=== PATIENT | male | born 1945 | race Caucasian/White ===

== ENCOUNTER → 2017-02-14 | Outpatient (CLI) | payer MEDICARE ==
[~2017-02-14] MED LIST: ADULT LOW DOSE81 MG PO; ASPIR 8181 MG PO; ASPIRIN EC81 M1 PO; AVODART0.5 MG PO; CELEBREX 200 M200 MG PO; CIPRO500 MG PO; FLOMAX PO; HYDROCHLOROTH12.5 MG PO; HYDROCODON-ACE1 EAC1 PO; HYDROCODON-ACE1 EAC5 PO; HYDROCODON-ACE1 EAC8 PO; MOBIC15 MG PO; NEURONTIN 300M300 M2 PO; OXYCODON-ACETA1 EAC1 PO; OXYCODONE-ACET1 EAC2 PO; PERCOCET 10-321 EAC1 PO; PERCOCET 10-321 EACH PO; RESTORIL15 MG PO
--- NOTE | 2017-03-01 09:02 | PAINCON ---
[address] [address] PAIN MANAGEMENT CONSULTATION Name: PETE BANGURA [id number] Admission: 02/14/17 Attend Phys: Luis Armando Milan DO Discharge: Date of : 45 Report #: [id number] THIS REPORT FOR: //name// CC: Amos Milan DATE OF SERVICE: 02/14/2017 CHIEF COMPLAINT: Low back pain, left lower extremity pain and paresthesias. HISTORY OF PRESENT ILLNESS: As you know, the patient is a very pleasant 72-year-old male who returns today in followup visit for continuation of medication therapy. The patient is placing current pain score 3/10. States he is experiencing mainly pain in low back, left lower extremity. He has intermittent flares throughout the day, mainly with activities when medications are not beneficial. He states that walking, sitting, standing, climbing stairs, lifting and bending exacerbate symptoms, medications appear to improve pain. He returns today in followup visit requesting no changes in medical therapy despite the fact that he is experiencing increasing flares of pain. Overall, states doing very well. We have discussed the possibility of a long-acting medication in the patient's case, but yet the patient does not wish to try this therapy. He returns today requesting 3 months' worth of medication for ongoing pain issues. ALLERGIES: No known drug allergies. CURRENT MEDICATIONS: Aspirin 81 mg per day, Avodart 0.5 mg once a day, Neurontin 900 mg 3 times a day, hydrochlorothiazide 12.5 mg once a day, Percocet 10/325 q. 5 hours p.r.n. for pain, Restoril 15 mg p.o. at bedtime. SOCIAL HISTORY: The patient denies tobacco, alcohol, IV or illicit drug use. 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 He is unaccompanied today. IMAGING: No new imaging available. PHYSICAL EXAMINATION: VITAL SIGNS: Blood pressure 127/69, pulse 68, respiratory rate 16, unlabored. The patient is 94% on room air, current temperature 97.7 degrees Fahrenheit, height 5 feet 9 inches tall, weight 163 pounds, BMI calculated 24. GENERAL: Well-developed, well-nourished, well-hydrated kyphotic and severely scoliotic 72-year-old male. He appears his stated age. He is placing current pain score 3/10. HEENT: Normocephalic, atraumatic. Pupils equal, round, reactive to light. EXTREMITIES: Show no clubbing, no cyanosis, no edema. MUSCULOSKELETAL: Lower extremity strength appears equal and symmetrical 5/5, [place] [address] PAIN MANAGEMENT CONSULTATION Name: PETE BANGURA Room: [facility]#: [id number] Admission: 02/14/17 Attend Phys: Luis Armando Milan DO Discharge: Date of : 45 Report #: [id number] muscle bulk and tone equal and symmetrical. Seated straight leg raising is negative. Supine straight leg raising is positive on the left. Alber's test negative. Active and passive range of motion of the shoulders met with increasing pain, left greater than right. He is displaying antalgic gait favoring left lower extremity over right. He is using a cane for ambulation. ASSESSMENT: 1. Symptomatic lumbar radiculopathy. 2. Spinal stenosis of lumbar spine. 3. Displacement of lumbar intervertebral disk with radiculopathy. 4. Lumbosacral spondylosis with radiculopathy. 5. Kyphosis. 6. Scoliosis. 7. Bilateral shoulder pain. 8. Chronic intractable pain. PLAN: 1. The patient has returned today in followup visit for medication management. The patient indicates increasing pain with activities, but at this point does not wish to make any adjustments in his therapy. States overall his pain medications are working well. He is requesting refills for the next 3 months. He indicates no side effects to medication and he has requested no early refills on his scheduled medications. 2. The patient was provided prescription of Percocet 10/325 one tab every 4-1/2 hours p.r.n. for pain., #150 releases of today, 4 weeks from today, 8 weeks from today. We did attempt to have this patient initiated on a long-term medication, but due to lack of coverage of the long-acting opioids, we were unable to place the patient on therapy. He remains on the immediate release formulation secondary to the lack of coverage for more appropriate long-acting medications. 3. The patient was provided prescription of Neurontin 300 mg dose 3 tabs p.o. t.i.d. #270, two refills, 3 months' worth of medication. 4. We will see the patient back in followup visit in 3 months for medication management. <ELECTRONICALLY SIGNED> By: Luis Armando Milan DO 03/01/17 0902 [id number] Armando Milan DO /nt
== END ==
LOC: M.PC 00:54
DX: M48.061 Spinal stenosis, lumbar region without neurogenic claudication (principal); M51.16 Intervertebral disc disorders with radiculopathy, lumbar region; M47.27 Other spondylosis with radiculopathy, lumbosacral region; M41.86 Other forms of scoliosis, lumbar region; M25.511 Pain in right shoulder; M25.512 Pain in left shoulder; G89.29 Other chronic pain

== ENCOUNTER → 2017-05-10 | Outpatient (CLI) | payer MEDICARE ==
--- NOTE | 2017-05-18 15:40 | PAINCON ---
[address] [address] PAIN MANAGEMENT CONSULTATION Name: SVETAPETE E Room: [facility] Tori#: [id number] Admission: 05/10/17 Attend Phys: Amara Turk MD Discharge: Date of : 45 Report #: [id number] THIS REPORT FOR: //name// CC: Amos Turk DATE OF SERVICE: 05/10/2017 CHIEF COMPLAINT: Low back, bilateral hip pain, left greater than right. FOLLOWUP HISTORY: The patient is a 72-year-old gentleman who has been followed in the pain clinic by Dr. Luis Armando Milan. This is my first visit with the patient. As you recall, he is a gentleman who has continued to have low back pain, which he rates as a score of 4/10. As you recall, he has had some pain for years. Pain in his hips continues to worsen. He feels that his pain medications of Percocet and gabapentin are helpful and help the pain remains tolerable. The pain interacts with his ability to engage in activities of daily living, which include walking, sitting, standing, climbing stairs, lifting and bending. Rates his pain as 5/10 at this juncture. He also has some pain in his neck from cervical spondylosis. He continues to have muscle spasms. He has returned today for renewal of his medications. Denies that these medications are causing any problems with mentation. He is not having significant problems with his bowel or bladder function at this juncture. ALLERGIES: No known drug allergies. MEDICATIONS: Review of current medications aspirin 81 mg chewable daily, Avodart 0.5 mg daily, gabapentin 300 mg 1 p.o. t.i.d., hydrochlorothiazide 12.5 mg daily, oxycodone 10/325 one p.o. q. 4-6h p.r.n., and Restoril 15 mg at bedtime. PAST MEDICAL HISTORY: 1. Symptomatic lumbar radiculopathy. 2. Lumbar intervertebral disk without myelopathy. 3. Lumbosacral spondylosis without myelopathy. 4. Spinal stenosis of the lumbar spine. 5. Severe kyphosis. 6. Chronic intractable pain. 7. History of kidney disease. 8. Muscular dystrophy. 9. First stage leukemia. PAST SURGICAL HISTORY: Tonsillectomy, foot surgery in 2013, in the little toes, status post transurethral resection of the prostate in 12/2014[place] [address] PAIN MANAGEMENT CONSULTATION Name: PETE BANGURA Room: [facility]#: [id number] Admission: 05/10/17 Attend Phys: Amara Turk MD Discharge: Date of : 45 Report #: [id number] REVIEW OF SYSTEMS: Muscle weakness, bilateral hip pain, poor balance. PAIN CLINIC ASSESSMENT: 1. The patient states he is not being treated for osteoarthritis or rheumatoid arthritis. 2. Height 5 feet 10 inches, weight 170 pounds, BMI is 24. 3. Vital signs: Blood pressure 151/73, heart rate 63, respiratory rate 16, room air saturation 95%, temperature 97.9. 4. Pain intensity 3-4. The patient sometimes gets up at 4:00 a.m. to take his pain medication because of the pain and discomfort as pain in his low back and legs as well as down his hip. 5. Fall risk. The patient has fallen a couple of times. He states that he tripped, lost his balance while going downstairs. 6. Blood thinner. The patient is not on a blood thinner. 7. Hypertension. The patient is being treated for hypertension. 8. Opioid therapy greater than 6 weeks. The patient is on an opioid therapy. 9. Risk assessment tool. 10. Functional assessment tool. 11. Recreational drug use. Denies use of recreational drugs. 12. Tobacco. Denies use of tobacco. 13. Alcohol. The patient sometimes drinks alcoholic beverage during the weekend. PHYSICAL EXAMINATION: GENERAL: The patient is a 72-year-old gentleman who has so alert and has some physical findings consistent with multiple sclerosis. He appears his stated age. Orientation: The patient is alert and oriented x 3. Patient's affect appears appropriate. Speech is fluent. HEENT: Normocephalic, atraumatic. Extraocular muscles intact. Hearing is within normal limits. Sclerae is nonicteric membranes are moist. NECK: Without adenopathy or bruits. CHEST: Clear. ABDOMEN: Nontender. MUSCULOSKELETAL: The patient stands with some leaning to the left with his well-being supported by his cane. Walks with a quite strenuous effort with use of his cane. EXTREMITIES: No clubbing, cyanosis or edema. Lower extremity shows generally symmetrical 5/5 muscle strength. Walks with somewhat of a shuffling motion. Muscle bulk and tone are about equal and symmetrical. Straight leg raising is negative. Supine straight leg raising, left is positive. ADELE test negative. Notes increased pain with active motion of his shoulders, left greater than right, antalgic gait favoring his left lower extremity. Uses a cane in the left hand for support. IMPRESSION: 1. Symptomatic lumbar radiculopathy. [facility] [address] [place] [address] PAIN MANAGEMENT CONSULTATION Name: PETE BANGURA Room: [facility]#: [id number] Admission: 05/10/17 Attend Phys: Amara Turk MD Discharge: Date of : 45 Report #: [id number] 2. Spinal stenosis of lumbar spine. 3. Displacement of the lumbar intervertebral disk with radiculopathy. 4. Lumbosacral spondylosis with radiculopathy. 5. Kyphosis. 6. Scoliosis. 7. Bilateral shoulder pain. 8. Chronic intractable pain. 9. Cervical facet syndrome. 10. Muscular dystrophy. 11. Chronic lymphocytic leukemia. 12. Enlarged prostate. 13. Hypertension. RECOMMENDATIONS: We discussed treatment options with the patient. He will continue with his followup at [facility]. He will also continue with followup regards with his primary in regards to the chronic lymphocytic leukemia. We will continue with his current medications of gabapentin 300 mg p.o. t.i.d. and oxycodone 10/325 a total of 5 tablets per day. He will call us if he has any problems with his medications. He will follow up in the pain clinic in about 3 months. We would like to thank you for letting us participate in his care. We hope he continues to improve. <ELECTRONICALLY SIGNED> By: Amara Turk MD 05/18/17 1540 [id number]. Flaco Turk MD /PMT
== END ==
LOC: M.PC 03:00
DX: M48.061 Spinal stenosis, lumbar region without neurogenic claudication (principal); M47.27 Other spondylosis with radiculopathy, lumbosacral region; I10 Essential (primary) hypertension; M41.86 Other forms of scoliosis, lumbar region; N40.0 Benign prostatic hyperplasia without lower urinary tract symptoms; G71.0 Muscular dystrophy

== ENCOUNTER → 2017-07-26 | Outpatient (CLI) | payer MEDICARE ==
--- NOTE | 2017-08-04 15:18 | PAINCON ---
[address] [address] PAIN MANAGEMENT CONSULTATION Name: PETE BANGURA Room: [facility] Tori#: [id number] Admission: 07/26/17 Attend Phys: Amara Turk MD Discharge: Date of : 45 Report #: [id number] THIS REPORT FOR: //name// CC: Amos Turk DATE OF SERVICE: 07/26/2017 FOLLOWUP COMPLAINT: Here for medication renewal. FOLLOWUP HISTORY: The patient is a 72-year-old gentleman who has been followed in the Pain Clinic because of chronic pain. He has continued to have pain and discomfort in his back and bilateral hips. He feels that his medications are helpful. He did find that his pain was a bit uncomfortable this morning, he rated it as 4-5/10, it woke him up. He has fallen since we saw him last. States that he was down the basement, he fell while walking with his cane, bruised his knee. Otherwise, it was not problematic. He is planning on going to [place] in about 3 weeks, he and his . After they return from [place], his will continue on and return to [place] which is her home. The patient has a history as you recall of chronic lymphocytic leukemia. He is being treated at [facility]. Noted that when he went this last time, his white blood cell count was elevated to about double. When he returns, he will follow up in October at . If his levels continue to climb, they will consider chemotherapy at that juncture. Overall, things are going reasonably well. He continues to have some pain in his neck, pain in the low back with muscle spasms. The patient feels that his medications are working reasonably well, they do not cause any problems with his sensorium. Mentally, he is thinking clearly. He would like to continue the medications because of their efficacy. ALLERGIES: No known drug allergies. CURRENT MEDICATIONS: 81 mg chewable aspirin, Avodart 0.5 mg daily, gabapentin 300 mg t.i.d., hydrochlorothiazide 12.5 mg daily, oxycodone 10/325 one p.o. q. 4-6 hours p.r.n., Restoril 15 mg at bedtime. PAIN CLINIC ASSESSMENT: 1. The patient has some arthritic changes in his low back and his hips. 2. Height 5 feet 10 inches, weight 169 pounds, BMI 23.4. 3. Vital signs: Blood pressure 138/74, heart rate 71, respiratory rate 16, room air saturation 92, temperature 97.4. 4. Pain intensity: 4-5/10. 5. Fall risk: The patient fell in his basement. He does [place] [address] PAIN MANAGEMENT CONSULTATION Name: PETE BANGURA Room: [facility]#: [id number] Admission: 07/26/17 Attend Phys: Amara Turk MD Discharge: Date of : 45 Report #: [id number] 6. Blood thinning: The patient is not on a blood thinning agent. 7. History of hypertension: The patient is being treated for hypertension. 8. Opioid therapy greater than 6 weeks: The patient receives his medications from the Pain Clinic and only one source. 9. Risk assessment tool. 10. Functional assessment tool. 11. Recreational drug use: The patient denies use of recreational drugs. 12. Tobacco: The patient denies use of tobacco. 13. Alcohol: The patient drinks an alcoholic beverage on the weekend. PHYSICAL EXAMINATION: GENERAL: The patient is a well-developed male. He is not in distress. He has findings which are consistent with multiple sclerosis. He appears his stated age. He is alert and oriented x 3. His affect is appropriate. Speech is fluent. HEENT: Normocephalic, atraumatic. Extraocular eye muscles intact. Hearing within normal limits. Sclerae nonicteric. The patient is on glasses. NECK: Without adenopathy or bruits. CHEST: Clear. ABDOMEN: Nontender. MUSCULOSKELETAL: The patient stands and leans to the left, being well supported by his cane. He walks with a significant effort using his cane. EXTREMITIES: The patient complains of pain and discomfort in his hips bilaterally, left greater than right. He has complaint of some low back pain. IMPRESSION: 1. Symptomatic lumbar radiculopathy history. 2. Spinal stenosis of the lumbar spine. 3. Displacement of the lumbar intervertebral disk with radiculopathy. 4. Lumbosacral spondylosis with radiculopathy. 5. Kyphosis. 6. Scoliosis. 7. Bilateral shoulder pain. 8. Chronic intractable pain. 9. Cervical facet syndrome. 10. Muscular dystrophy. 11. Chronic lymphocytic leukemia. 12. Enlarged prostate. 13. Hypertension. RECOMMENDATIONS: We discussed treatment options with the patient. Risks and benefits of his medications were again reviewed. Possible complication of opioids were discussed. The patient feels that his medications are working reasonably well. They enable him to engage in activities he probably would not be able to without their use. He has noted some increased white cell activity. He will follow up with his oncologist at the [facility]. He will call [address] [id number] PAIN MANAGEMENT CONSULTATION Name: PETE BANGURA Room: [facility]#: [id number] Admission: 07/26/17 Attend Phys: Amara Turk MD Discharge: Date of : 45 Report #: [id number] us if he has any problem with his medications. A script for his medications has been rewritten for oxycodone 10/325 one p.o. q. 4 hours, a total of 150 for 3 months, as well as gabapentin 300 mg t.i.d. He will call us if he has any problem with his medications. We would like to thank you for letting us participate in his care. We hope he continues to improve. <ELECTRONICALLY SIGNED> By: Amara Turk MD 08/04/17 1518 0909 [id number]. Flaco Turk MD /nt
== END ==
LOC: M.PC 02:46
DX: M47.27 Other spondylosis with radiculopathy, lumbosacral region (principal); M48.061 Spinal stenosis, lumbar region without neurogenic claudication; M51.16 Intervertebral disc disorders with radiculopathy, lumbar region; I10 Essential (primary) hypertension; G89.4 Chronic pain syndrome; N40.0 Benign prostatic hyperplasia without lower urinary tract symptoms; M41.9 Scoliosis, unspecified; C91.10 Chronic lymphocytic leukemia of B-cell type not having achieved remission; G71.0 Muscular dystrophy

== ENCOUNTER → 2017-10-18 | Outpatient (CLI) | payer MEDICARE ==
--- NOTE | 2017-11-21 10:00 | PAINCON ---
[address] [address] PAIN MANAGEMENT CONSULTATION Name: PETE BANGURA [facility]#: [id number] Admission: 10/18/17 Attend Phys: Amara Turk MD Discharge: Date of : 45 Report #: [id number] THIS REPORT FOR: //name// CC: Amos Turk DATE OF SERVICE: 10/18/2017 CHIEF COMPLAINT: Cervical spondylosis. FOLLOWUP HISTORY: The patient is a 72-year-old gentleman who has been followed in the Pain Clinic because of chronic pain. He has pain in his back as well as pain in his hips bilaterally. He finds his medications are helpful. He finds that the pain is less problematic in the morning. The weather has changed and he has noted an improvement in his pain. He did fall a few weeks ago. He states he was in the basement moving some things around. His feet got caught on an extension cord. He was not traumatized enough that he needed to seek hospital attention. He continues to walk with his cane. As you recall, he has muscular dystrophy. The patient has had elevated white blood cell count. As you recall, he suffers from chronic lymphocytic leukemia. He is scheduled to follow up at . If his white blood cell count is elevated, they may elect to start chemotherapy. He is not sure what that entails. Overall, things are going reasonably well. He feels that he continues to think clearly with use of his medications. No problem with his bowel or bladder function. ALLERGIES: No known drug allergies. CURRENT MEDICATIONS: Chewable aspirin 81 mg, Avodart 0.5 mg daily, gabapentin 300 mg t.i.d., hydrochlorothiazide 12.5 mg daily, oxycodone 10/325s q. four to six hours p.r.n., Restoril 15 mg at bedtime. PAIN CLINIC ASSESSMENT: 1. The patient has some arthritic changes in his low back and in his hips. 2. Height 5 feet 10 inches, weight 173 pounds, BMI is 24. 3. Vital signs: Blood pressure 113/55, heart rate 72, respiratory rate 18, room air saturation 95%, temperature 97.8. 4. Pain score: 4/10. 5. Fall risk: The patient fell in his basement because of his legs got caught up on an extension cord he was moving in the basement. 6. Blood thinner: The patient is not on a blood thinning medication. 7. Hypertension. The patient is being treated for hypertension. 8. Opioid therapy greater than 6 weeks: The patient refuses medication from the Pain Clinic. 9. Risk assessment tool. 10. Functional assessment tool. 11. Recreational drug use: The patient denies [place] [address] PAIN MANAGEMENT CONSULTATION Name: PETE BANGURA Room: [facility]#: [id number] Admission: 10/18/17 Attend Phys: Amara Turk MD Discharge: Date of : 45 Report #: [id number] 12. Tobacco: The patient denies use of tobacco. 13. Alcohol: The patient denies use of alcoholic beverages. PHYSICAL EXAMINATION: GENERAL: The patient is a well-developed white male. He is no distress. His findings consistent with multiple sclerosis. He appears his stated age. Speech is fluent. HEENT: Normocephalic, atraumatic. Extraocular eye muscles intact. The patient wears glasses. Hearing is within normal limits. Sclerae nonicteric. NECK: Without adenopathy or bruits. CHEST: Clear to auscultation. ABDOMEN: Nontender, without distention. MUSCULOSKELETAL: The patient stands and leans to the left. He has evidence of kyphosis. His walk seems like it is an effort. He continues to have pain and discomfort in his hips bilaterally, right side greater than left. He complains of low back pain. IMPRESSION: 1. Symptomatic lumbar radiculopathy history. 2. Spinal stenosis of the lumbar spine. 3. Displacement of the lumbar intervertebral disc with radiculopathy. 4. Lumbosacral spondylosis with radiculopathy. 5. Kyphosis. 6. Scoliosis. 7. Bilateral shoulder pain. 8. Chronic intractable pain. 9. Cervical facet syndrome. 10. Muscular dystrophy. 11. Chronic lymphocytic leukemia. 12. Enlarged prostate. 13. Hypertension. RECOMMENDATIONS: We discussed the treatment option with the patient. We will continue with his medications. He feels that the medications are efficacious. He does not have any problem with the medications. They enable him to be active and engage in activities of daily living, he would not be able to without their use. He is going to follow up with the [facility]. He does have chronic lymphocytic leukemia. After blood values are evaluated, the patient may undergo chemotherapy. He is not sure. We would like to thank you for letting us participate in his care. We hope he continues to improve. <ELECTRONICALLY SIGNED> By: Amara Turk MD 11/21/17 1000 [id number]. Flaco Turk MD /nt
== END ==
LOC: M.PC 04:46
DX: M47.27 Other spondylosis with radiculopathy, lumbosacral region (principal); M51.16 Intervertebral disc disorders with radiculopathy, lumbar region; M47.812 Spondylosis without myelopathy or radiculopathy, cervical region; M48.061 Spinal stenosis, lumbar region without neurogenic claudication; M41.86 Other forms of scoliosis, lumbar region; I10 Essential (primary) hypertension; N40.0 Benign prostatic hyperplasia without lower urinary tract symptoms; G89.4 Chronic pain syndrome; G71.0 Muscular dystrophy; M25.511 Pain in right shoulder; M25.512 Pain in left shoulder; Z79.899 Other long term (current) drug therapy

== ENCOUNTER → 2018-01-10 | Outpatient (CLI) | payer MEDICARE ==
--- NOTE | 2018-01-13 17:20 | PAINCON ---
[address] [address] PAIN MANAGEMENT CONSULTATION Name: PETE BANGURA Room: [facility] EdelJerilyn#: [id number] Admission: 01/10/18 Attend Phys: Amara Turk MD Discharge: Date of : 45 Report #: [id number] THIS REPORT FOR: //name// CC: Amos Turk DATE OF SERVICE: 01/10/2018 FOLLOWUP COMPLAINT: "Here for medication renewal. I am still having pain in the low back." FOLLOWUP HISTORY: The patient is a 72-year-old gentleman who has been followed in the Pain Clinic because of chronic pain. He has pain in his back as well as pain down into his hips bilaterally. He finds that his medications are helpful. The patient has noted some increased pain and discomfort. The temperature has changed. Outdoor temperature is about 30 degrees. The patient has not fallen in the last 3 months. He states that his low back pain continues to radiate down into his left leg in his hip. He feels that he will need chemotherapy early next year. He rates his pain as 4-5/10. He feels that gabapentin 300 mg 9 tablets daily is helpful. He feels that the oxycodone 10 q. 4 is helpful as well. He feels that things overall are about 50% better with his medication. He notes that activities, cold weather, walking, sitting, standing, climbing stairs, going from a sitting to standing, lifting and bending are all still problematic. The patient continues to ambulate with use of his cane. He has muscular dystrophy. He has had elevated white blood cell counts. He suffers from chronic lymphocytic leukemia. He states that he will need to undergo chemotherapy in the early portion of next year. Overall, things are going reasonably well. His continues to travel on occasion to [place]. He denies any new problems with bowel or bladder function. ALLERGIES: No known drug allergies. CURRENT MEDICATIONS: Chewable aspirin 81 mg, Avodart 0.5 mg daily, gabapentin 300 mg t.i.d., hydrochlorothiazide 12.5 mg daily, oxycodone 10/325 q. 4 hours p.r.n., Restoril 15 mg at bedtime. PAIN CLINIC ASSESSMENT AND PQRS: 1. The patient has some arthritic changes in his low back and in his hips. He has not been treated for rheumatoid arthritis. 2. Height 5 feet 10 inches, weight 181 pounds, BMI is 26. 3. Vital signs: Blood pressure 138/75, heart rate 60, respiratory rate 18, room air saturation 91%, temperature 97.7. 4. Pain score: 4-5/10. 5. Fall risk: The patient has not fallen in the last 3 months. 6. Blood thinner: The patient is not on a [place] [address] PAIN MANAGEMENT CONSULTATION Name: PETE BANGURA Room: [facility]#: [id number] Admission: 01/10/18 Attend Phys: Amara Turk MD Discharge: Date of : 45 Report #: [id number] 7. Hypertension: The patient is being treated for hypertension. 8. Opioid therapy greater than 6 weeks: The patient continues to receive medications through the Pain Clinic. 9. Risk assessment tool: Low for opioid use. 10. Functional assessment tool. 11. Recreational drug use: The patient denies use of recreational drugs. 12. Tobacco: The patient denies use of tobacco. 13. Alcohol: The patient denies use of alcoholic beverages. PHYSICAL EXAMINATION: GENERAL: The patient is a well-developed, well-nourished, white male. He appears his stated age. He is alert and oriented x 3. His affect is appropriate. Speech is fluent. The patient has movements consistent with multiple sclerosis. Speech is fluent. HEENT: Normocephalic, atraumatic. Extraocular eye muscles intact. The patient wears glasses. His hearing is within normal limits. Sclerae nonicteric. NECK: Without adenopathy or bruits. CHEST: Clear to auscultation. ABDOMEN: Nontender without distention. MUSCULOSKELETAL: The patient stands and leans to the left. He has evidence of kyphosis. He walks with effort. He continues to have pain and discomfort in his hips bilaterally, right side greater than left. He complains of low back pain. IMPRESSION: 1. Symptomatic lumbar radiculopathy. 2. Spinal stenosis of the lumbar spine. 3. Displacement of lumbar intervertebral disk with radiculopathy. 4. Lumbosacral spondylosis with radiculopathy. 5. Kyphosis. 6. Scoliosis. 7. Bilateral shoulder pain. 8. Chronic intractable pain. 9. Cervical facet syndrome. 10. Muscular dystrophy. 11. Chronic lymphocytic leukemia -- he will receive treatment at in the next year. 12. Enlarged prostate. 13. Hypertension. RECOMMENDATIONS: We discussed treatment option with the patient. Risks and benefits of his medications were again reviewed. He feels that the medications are efficacious. He would like to continue with his oxycodone as well as gabapentin. We discussed the options with the patient with gabapentin. The patient takes a total of 2700 mg of gabapentin daily, he is on 300 mg tablets. I think he would be well served if he uses 600 mg tablets 1 p.o. t.i.d. and 1/[address] [place] [address] PAIN MANAGEMENT CONSULTATION Name: PETE BANGURA Room: [facility]#: [id number] Admission: 01/10/18 Attend Phys: Amara Turk MD Discharge: Date of : 45 Report #: [id number] tablet by breaking a 600 mg tablet for a total of 900 mg per day. I think this would be a little bit easier rather than taking 9 tablets per day. The patient will follow up with the folks at [facility] regarding his chronic lymphocytic leukemia. We would like to thank you for letting us participate in his care. We hope he continues to improve. <ELECTRONICALLY SIGNED> By: Amara Turk MD 01/13/18 1720 [id number]. Flaco Turk MD /nt
== END ==
LOC: M.PC 05:22
DX: M47.27 Other spondylosis with radiculopathy, lumbosacral region (principal); M51.16 Intervertebral disc disorders with radiculopathy, lumbar region; M48.061 Spinal stenosis, lumbar region without neurogenic claudication; M41.86 Other forms of scoliosis, lumbar region; G89.4 Chronic pain syndrome; M25.511 Pain in right shoulder; M25.512 Pain in left shoulder; I10 Essential (primary) hypertension; G71.00 Muscular dystrophy, unspecified; N40.0 Benign prostatic hyperplasia without lower urinary tract symptoms; M53.1 Cervicobrachial syndrome; C91.10 Chronic lymphocytic leukemia of B-cell type not having achieved remission; Z79.899 Other long term (current) drug therapy

== ENCOUNTER → 2018-04-04 | Outpatient (CLI) | payer MEDICARE ==
--- NOTE | 2018-04-05 09:41 | PAINCON ---
[address] [address] PAIN MANAGEMENT CONSULTATION Name: SVETAPETE FLYNN Room: [facility] EDA Valle#: [id number] Admission: 04/04/18 Attend Phys: Amara Turk MD Discharge: Date of : 45 Report #: [id number] THIS REPORT FOR: //name// CC: Amos Turk DATE OF SERVICE: 04/04/2018 CHIEF COMPLAINT: "Here for medication renewal." FOLLOWUP HISTORY: The patient is a 73-year-old gentleman who has been followed in the Pain Clinic because of chronic pain. He has pain in his back as well as pain down into his hips bilaterally. He has noted some increased pain and discomfort. The weather has been quite remarkable for changes in temperature. He has fallen a couple of times. He states that when he is walking his left leg sometimes becomes stiff. He finds it is difficult to note its position. He rates his pain as a 4-5. He has had some problems with pain and has felt that he needs to take his medication more frequently. He is being followed by his oncologist. He may need to undergo chemotherapy in the future. He feels overall the things are 50% better on a good day and 30% better on a bad day. He may need to undergo treatment for his chronic lymphocytic leukemia. Denies any problems with bowel or bladder function. ALLERGIES: No known drug allergies. CURRENT MEDICATIONS: Chewable aspirin 81 mg, Avodart 0.5 mg daily, gabapentin 300 mg t.i.d., hydrochlorothiazide 12.5 mg, oxycodone 10/325s q. four hours p.r.n., Restoril 15 mg at bedtime. PAIN CLINIC ASSESSMENT/PQRS: 1. The patient has some arthritic changes in his low back and in his hips. He is not being treated for rheumatoid arthritis. 2. Height 5 feet 10 inches, weight 180 pounds, BMI is 25.9. 3. Vital signs: Blood pressure 126/66, heart rate 84, respiratory rate 16, room air saturation 92%, temperature 97.1. 4. Pain intensity: 4/10. 5. Fall history: The patient has fallen in the last 3 months. He has not had to go to the hospital or seek medical attention. 6. Blood thinner: The patient is not on a blood thinning medication. 7. Hypertension: The patient is being treated for hypertension. 8. Opioids greater than 6 weeks: The patient receives his medication from one source, Pain Clinic. 9. Risk assessment tool: Low for opioid use. 10. Functional assessment tool. 11. Recreational drug use: The patient denies use of recreational drugs. 12. Tobacco: The [place] [address] PAIN MANAGEMENT CONSULTATION Name: PETE BANGURA Room: [facility]#: [id number] Admission: 04/04/18 Attend Phys: Amara Turk MD Discharge: Date of : 45 Report #: [id number] 13. Alcohol: The patient denies use of alcoholic beverages. PHYSICAL EXAMINATION: GENERAL: The patient is a well-developed, well-nourished white male. He appears his stated age. His affect is appropriate. The patient has multiple sclerosis. Speech is fluent. HEENT: Normocephalic, atraumatic. Extraocular eye muscles are intact. Sclerae nonicteric. NECK: Without adenopathy or bruits. CHEST: Clear to auscultation. ABDOMEN: Nontender. Bowel sounds present. MUSCULOSKELETAL: The patient stands leaning to his left. He has evidence of kyphosis. He walks with a great effort. He continues to have some discomfort in his hips, right side greater than left. He has low back pain. IMPRESSION: 1. Symptomatic lumbar radiculopathy. 2. Spinal stenosis of the lumbar spine. 3. Displacement of the lumbar intervertebral disc with radiculopathy. 4. Lumbosacral spondylosis with radiculopathy. 5. Kyphosis. 6. Scoliosis. 7. Bilateral shoulder pain. 8. Chronic intractable pain. 9. Cervical facet syndrome. 10. Muscular dystrophy. 11. Chronic lymphocytic leukemia, being treated at with elevated white blood cell count. 12. Enlarged prostate. 13. Hypertension. RECOMMENDATIONS: We discussed treatment options with the patient. We will continue with his current medications of gabapentin and oxycodone. The patient will call us if he has any concerns. He has had a fall. He states that his left leg gets more problematic secondary to muscular dystrophy. We have discussed the use of opioid medications. The patient feels that his opioid medication is not as effective as it had been. We discussed the possible worsening of his pain secondary to the varying temperatures and barometric pressure we have been experiencing. It has been common the patients have been complaining of this worsening of pain. We have explained that elevation of opioid medications can sometimes be helpful but overall may become less effective secondary to development of tolerance. A script for his medications has been renewed. He will continue with gabapentin, a 90-day supply, 270 tablets, 300 mg one p.o. t.i.d. has been written. Oxycodone 10/325s one p.o. q. four to six hours p.r.n. pain, 150 tablets have been dispensed. The patient will call us if [place] [address] PAIN MANAGEMENT CONSULTATION Name: PETE BANGURA Room: [facility].R.#: [id number] Admission: 04/04/18 Attend Phys: Amara Turk MD Discharge: Date of : 45 Report #: [id number] We would like to thank you for letting us participate in his care. We hope he continues to improve. <ELECTRONICALLY SIGNED> By: Amara Turk MD 04/05/18 0941 [id number]. Flaco Turk MD /nt
== END ==
LOC: M.PC 08:10
DX: M54.16 Radiculopathy, lumbar region (principal); M25.512 Pain in left shoulder; M25.511 Pain in right shoulder; G89.4 Chronic pain syndrome; I10 Essential (primary) hypertension; N40.0 Benign prostatic hyperplasia without lower urinary tract symptoms; C91.90 Lymphoid leukemia, unspecified not having achieved remission; M48.061 Spinal stenosis, lumbar region without neurogenic claudication; M40.209 Unspecified kyphosis, site unspecified; G71.00 Muscular dystrophy, unspecified; M53.82 Other specified dorsopathies, cervical region; Z79.899 Other long term (current) drug therapy

== ENCOUNTER → 2018-06-27 | Outpatient (CLI) | payer MEDICARE ==
[~2018-06-27] MED LIST changes: +GABAPENTIN800 M1 PO; +ZYLOPRIM300 MG PO; +[UNRECOGNIZED DRUG - OTHER]
--- NOTE | ~2018-06-27 | PAINCON ---
[address] [address] PAIN MANAGEMENT CONSULTATION Name: KTLISPETE GEE Room: [facility] EDA Valle#: [id number] Admission: 06/27/18 Attend Phys: Amara Turk MD Discharge: Date of : 45 Report #: [id number] THIS REPORT FOR: //name// CC: Amos Turk DATE OF SERVICE: 06/27/2018 CHIEF COMPLAINT: "Here for medication renewal. I might have to have some increase in my medicine. I am still taking the chemotherapy." HISTORY: The patient is a 73-year-old gentleman who has been followed in the Pain Clinic. As you may recall, he has chronic pain with pain down into his hips. He walks with use of a cane. He has fallen a couple of times. 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 While moving around his job, he did fall. He did not sustain an injury, which required medical attention. He notes pain in his left hip as well as his left leg. He rates his pain as a 7/10 at this point. He has noted a change in the weather. He has been followed by his oncologist. He is receiving medications for his leukemia. He states that they may be changing his medications in the future. He has noticed that his pain continues to improve. He is taking gabapentin. He finds that this medication is helpful. He is taking 300 mg, a total of nine pills per day. He has had no complications with that medication. He is now taking allopurinol as well as Leukeran for his cancer at this juncture. As you recall, he has chronic lymphocytic leukemia. Denies any problem with his bowel or bladder function. ALLERGIES: No known drug allergies. CURRENT MEDICATIONS: Chewable aspirin 81 mg, Avodart 0.5 mg, gabapentin 300 mg nine tablets t.i.d., hydrochlorothiazide 12.5 mg, oxycodone 10/325s q. four hours p.r.n., Restoril 15 mg at bedtime, allopurinol 300 mg daily, and as part of his lymphocytic leukemia treatment, Leukeran 2 tablets. PAIN CLINIC ASSESSMENT/PQRS: 1. The patient has some arthritic changes in his low back and in his hip. He is not being treated for rheumatoid arthritis. 2. Height 5 feet 10 inches, weight 176 pounds, and BMI is 25.3. 3. Blood pressure 114/52, heart rate 85, respiratory rate 16, room air saturation is 91%, temperature 97.7. 4. Pain intensity: 7/10. 5. Fall history: The patient has stumbled and fallen, but no medical attention was needed. 6. Blood thinner: The patient is not on a blood thinning medication. 7. Hypertension: The patient is being treated for hypertension. 8. Opioids greater than 6 weeks: The patient receives medication from one source, the [place] [address] PAIN MANAGEMENT CONSULTATION Name: PETE BANGURA Room: [facility] EDA Valle#: [id number] Admission: 06/27/18 Attend Phys: Amara Turk MD Discharge: Date of : 45 Report #: [id number] 9. Risk assessment tool: Low for opioid use. 10. Functional assessment tool. 11. Recreational drug use: The patient denies use of recreational drugs. 12. Tobacco: The patient denies use of tobacco. 13. Alcohol: The patient denies use of alcoholic beverages. PHYSICAL EXAMINATION: GENERAL: The patient is a well-developed, well-nourished white male. He appears his stated age. He is alert and oriented x 3. His affect is appropriate. Speech is fluent. The patient has multiple sclerosis. HEENT: Normocephalic, atraumatic. Extraocular eye muscles intact. Sclerae nonicteric. The patient is wearing glasses. NECK: Without adenopathy or bruits. LUNGS: Clear to auscultation. MUSCULOSKELETAL: The patient stands leaning to his left with evidence of kyphosis. He walks with great effort. He continues with some discomfort in his hips, right side greater than left. He has pain in his low back area. IMPRESSION: 1. Symptomatic lumbar radiculopathy. 2. Spinal stenosis of the lumbar spine. 3. Treatment for chronic lymphocytic leukemia. 4. Lumbosacral spondylosis with radiculopathy. 5. Kyphosis. 6. Scoliosis. 7. Bilateral shoulder pain. 8. Chronic intractable pain. 9. Cervical facet syndrome. 10. Muscular dystrophy. 11. Enlarged prostate. 12. Hypertension. RECOMMENDATIONS: We discussed treatment options with the patient. At this juncture, he feels that his medications are helpful. He would like to have his medications renewed for a 3-month prescription. We discussed the options. The patient is taking 300 mg three times a day, that is the total of 2700 mg of gabapentin. I think it would be more efficacious for the patient to take 800 mg tablets one tablet t.i.d. and 1-1/2 tablet at bedtime. We have given the patient a script for this. Hopefully, this simplifies his regimen. He does feel that his pain level continues to increase. At some point, he feels he may need to increase his medications. At that point, we will provide him with a longer acting opioid medication as well as continue with his short[place] [address] PAIN MANAGEMENT CONSULTATION Name: PETE BANGURA Room: [facility].#: [id number] Admission: 06/27/18 Attend Phys: Amara Turk MD Discharge: Date of : 45 Report #: [id number] We would like to thank you for letting us participate in his care. We hope he continues to improve. By: [id number]. Flaco Turk MD /nt
== END ==
LOC: M.PC 01:44
DX: G89.29 Other chronic pain (principal); M47.26 Other spondylosis with radiculopathy, lumbar region; M47.27 Other spondylosis with radiculopathy, lumbosacral region; M48.061 Spinal stenosis, lumbar region without neurogenic claudication; I10 Essential (primary) hypertension; M41.80 Other forms of scoliosis, site unspecified; N40.0 Benign prostatic hyperplasia without lower urinary tract symptoms; M25.511 Pain in right shoulder; M25.512 Pain in left shoulder; Z79.899 Other long term (current) drug therapy

== ENCOUNTER → 2018-09-19 | Outpatient (CLI) | payer MEDICARE ==
--- NOTE | ~2018-09-19 | PAINCON ---
[address] [address] PAIN MANAGEMENT CONSULTATION Name: SVETAPETE GEE Room: [facility] EDA Valle#: [id number] Admission: 09/19/18 Attend Phys: Amara Turk MD Discharge: Date of : 45 Report #: [id number] THIS REPORT FOR: //name// CC: Amos Turk DATE OF SERVICE: 09/19/2018 CHIEF COMPLAINT: Here for medication renewal. HISTORY OF PRESENT ILLNESS: The patient is a 73-year-old gentleman who has been followed in the pain clinic because of chronic pain. It involves his lumbar area. He has pain that radiates down into his hips. He does walk with a cane. He has chronic lymphocytic leukemia. He is now engaged in treatment. He has had chemotherapy agents. Overall, things are going reasonably well. The cost of the medication is somewhat alarming. His medication is $12,000 a month. States that he will take this medication for a year. Hopefully, he will get good results. If he does and he will stop taking it because of the cost. He has been using the Percocet medication and found that they are not quite as effective as they had been initially. Continues to have pain in his lower back and into the right hip. Notes that the pain is better when he is lying down. Rates his pain as 4-5 at this point. ALLERGIES: No known drug allergies. CURRENT MEDICATIONS: Chewable aspirin, Avodart 0.5 mg, gabapentin 300 mg 9 tablets t.i.d., hydrochlorothiazide 12.5 mg, oxycodone 10/325 one p.o. q. 4 hours p.r.n., Restoril 15 mg at bedtime, allopurinol 300 mg daily as part of the lymphocytic leukemia treatment. Leukeran 2 tablets and ____ monthly/weekly of chemotherapeutic agents. PAIN CLINIC ASSESSMENT AND PQRS: 1. The patient has some pain and discomfort in his hips. He is not being treated for rheumatoid arthritis. 2. Height 5 feet 10 inches, weight 176 pounds, BMI is 25.3. 3. Vital signs: Blood pressure 109/61, heart rate 80, respiratory rate 16, room air saturation 93%, and temperature 98.1. 4. Pain intensity 4-5/10. 5. Fall history: The patient has not fallen in the last 3 months. 6. Blood thinner. The patient is not on a blood thinning medication. 7. Hypertension. The patient is being treated for hypertension. 8. Opioids greater than 6 weeks. The patient received medication from one source, the pain clinic. 9. Risk assessment tool, low for opioid use. 10. Functional assessment tool. 11. Recreational drug use. The patient [place] [address] PAIN MANAGEMENT CONSULTATION Name: PETE BANGURA Room: [facility]#: [id number] Admission: 09/19/18 Attend Phys: Amara Turk MD Discharge: Date of : 45 Report #: [id number] 12. Tobacco: The patient denies use of tobacco. 13. Alcohol: The patient denies use of alcoholic beverages. PHYSICAL EXAMINATION: GENERAL: The patient is a well-developed, well-nourished white male. Appears his stated age. He is alert and oriented x 3. His affect is appropriate. Speech is fluent. The patient has a history of multiple sclerosis. NECK: Without adenopathy or JVD. LUNGS: Clear to auscultation. MUSCULOSKELETAL: The patient stands leaning to his left with evidence of kyphosis. Walks with some great effort. He continues to have some discomfort in his lower back and hips, right side greater than left. IMPRESSION: 1. Symptomatic lumbar radiculopathy. 2. Spinal stenosis of lumbar spine. 3. Treatment of chronic lymphocytic leukemia at [facility]. 4. Lumbosacral spondylosis with radiculopathy. 5. Kyphosis. 6. Scoliosis. 7. Bilateral shoulder pain. 8. Chronic intractable pain. 9. Cervical facet syndrome. 10. Muscular dystrophy. 11. Enlarged prostate. 12. Hypertension. RECOMMENDATIONS: We discussed treatment options with the patient. At this juncture, we will continue with his medications. He feels these medications are helpful. He is concerned because of the cost of his chemotherapy of $12,000 a month. He states that his portion is about $1200, but it still is an extensive treatment course. States that after a year, if he does not note significant benefits he will probably stop it because he does want to exhaust all of his money, so that his will be living and having significant financial hardship, should he pass away. He notes his pain is about 30-40% improved with his current medications. We will continue with the Percocet 10 mg 1 p.o. q. 4 hours. The patient will call us if he has any concerns. We would like to thank you for letting us participate in his care. We hope he continues to improve. A script for his medications has been written. We will continue with the use of the opioid medications to help control his pain. By: [id number]. Flaco Turk MD /juani
== END ==
LOC: M.PC 05:11
DX: M47.27 Other spondylosis with radiculopathy, lumbosacral region (principal); M48.07 Spinal stenosis, lumbosacral region; M25.511 Pain in right shoulder; M25.512 Pain in left shoulder; N40.0 Benign prostatic hyperplasia without lower urinary tract symptoms; I10 Essential (primary) hypertension; C91.10 Chronic lymphocytic leukemia of B-cell type not having achieved remission; M40.209 Unspecified kyphosis, site unspecified

== ENCOUNTER → 2018-12-12 | Outpatient (CLI) | payer MEDICARE ==
--- NOTE | 2018-12-18 13:25 | PAINCON ---
[address] [address] PAIN MANAGEMENT CONSULTATION Name: PETE BANGURA Room: [facility] EDA Valle#: [id number] Admission: 12/12/18 Attend Phys: Amara Turk MD Discharge: Date of : 45 Report #: [id number] THIS REPORT FOR: //name// CC: Amos Turk DATE OF SERVICE: 12/12/2018 CHIEF COMPLAINT: Low back pain, which has been present for years. HISTORY: The patient is a 73-year-old gentleman. As you recall, he suffers from muscular dystrophy. States that he was down in his shop in the basement. His leg gave way. He did fall. He did not injure himself to the point that he needed medical attention. States that his mother had suffered similar problems with her muscular dystrophy in the past. He has been treated at [facility] for chronic lymphocytic leukemia. He states that he takes a pill 4 times daily for this problem. He has returned today for renewal of his medication. Feels that the oxycodone is helpful. Feels that this may be losing some of its effectiveness. Notes that his pain increases with prolonged standing. He does walk and use a cane. Rates his pain as 6-7/10. Notes that walking, sitting, standing, climbing stairs, lifting and bending are problematic. The pain improves with medications as well as rest. He has returned today for renewal of his medication. ALLERGIES: No known drug allergies. CURRENT MEDICATIONS: Chewable aspirin, Avodart 0.5 mg, gabapentin 300 mg 1 p.o. t.i.d., hydrochlorothiazide 12.5 mg, oxycodone 10/325 one p.o. q 4-6 hours, Restoril 15 mg at bedtime, allopurinol 300 mg part of his lymphocytic leukemia treatment, Leukeran 2 tablets total of 4 tablets daily. PAIN CLINIC ASSESSMENT/PQRS: 1. The patient has some discomfort in his hips. He is not being treated for rheumatoid arthritis. 2. Height 5 feet 10 inches, weight 186 pounds, BMI is 26. 3. Vital Signs: Blood pressure 119/69, heart rate 80, respiratory rate 16, room air saturation 90%. 4. Pain intensity is 6-7/10. 5. Fall history: The patient did fall in his basement. States his leg went numb and gave way. He is not aware when this might happen. 6. Blood thinner. The patient is not on a blood thinning medication. 7. Hypertension. The patient is being treated for hypertension. 8. Opioid greater than 6 weeks. The patient receives medication from [facility]. 9. Risk assessment tool, [place] [address] PAIN MANAGEMENT CONSULTATION Name: PETE BANGURA Room: [facility] LETICIA Tori#: [id number] Admission: 12/12/18 Attend Phys: Amara Turk MD Discharge: Date of : 45 Report #: [id number] 10. Functional assessment tool. 11. Recreational drug use. The patient denies use of recreational drugs. 12. Tobacco: The patient denies use of tobacco. 13. Alcohol. The patient denies use of alcoholic beverages. PHYSICAL EXAMINATION: GENERAL: The patient is a well-developed white male, appears his stated age. He is alert and oriented x 3. His affect is appropriate. Speech is fluent. HEENT: Wears glasses. NECK: Without adenopathy. HEART: Regular rate. LUNGS: Generally clear. MUSCULOSKELETAL: The patient stands leaning on to the left with evidence of kyphosis. Uses a great amount of energy and effort to ambulate. Complains of pain in the lower back, hips, right side greater than left. IMPRESSION: 1. Symptomatic lumbar radiculopathy. 2. Spinal stenosis of lumbar spine. 3. Treatment of chronic lymphocytic leukemia. [facility] 4. Lumbosacral spondylosis with radiculopathy. 5. Kyphosis. 6. Scoliosis. 7. Bilateral shoulder pain. 8. Chronic intractable pain treated with opioid medications, complex regimen. 9. Cervical facet syndrome. 10. Muscular dystrophy. 11. Enlarged prostate. 12. Hypertension. RECOMMENDATION: We discussed treatment options with the patient. At this juncture, we will continue with his medications. He finds that the medications continue to be helpful. Feels that they are becoming a little bit less effective. Overall, he feels that the medications enable him to be active, without them he would be much less active and more chair bound. He is not having any problems with the medications. His thinking is clear. His sensorium is clear. He does not show any signs of addiction. He has been prescribed oxycodone 10 mg 1 p.o. q. 4 hours total 150 tablets daily. A script for the next 3 months of hydrocodone has been prescribed. The patient will call us if he has any concerns. We would like to thank you for letting us participate in his care. <ELECTRONICALLY SIGNED> By: Amara Turk MD 12/18/18 1325 [id number]. Flaco Turk MD /nt
== END ==
LOC: M.PC 05:06
DX: M47.27 Other spondylosis with radiculopathy, lumbosacral region (principal); M48.061 Spinal stenosis, lumbar region without neurogenic claudication; M41.86 Other forms of scoliosis, lumbar region; M25.511 Pain in right shoulder; M25.512 Pain in left shoulder; N40.0 Benign prostatic hyperplasia without lower urinary tract symptoms; I10 Essential (primary) hypertension; G71.00 Muscular dystrophy, unspecified; Z79.891 Long term (current) use of opiate analgesic; Z85.6 Personal history of leukemia

== ENCOUNTER → 2019-03-06 | Outpatient (CLI) | payer MEDICARE ==
[~2019-03-06] MED LIST changes: +METHADONE HCL5 MG PO
--- NOTE | ~2019-03-06 | PAINCON ---
[address] [address] PAIN MANAGEMENT CONSULTATION Name: PETE BANGURA Room: [facility] EDA FergusonDimitry#: [id number] Admission: 03/06/19 Attend Phys: Amara Turk MD Discharge: Date of : 45 Report #: [id number] THIS REPORT FOR: //name// CC: Amos Turk DATE OF SERVICE: 03/06/2019 CHIEF COMPLAINT: Low back pain. "I am threw with my IV cancer medications, now I am taking pills." HISTORY: The patient is a 74-year-old gentleman who has been followed in the Pain Clinic because of chronic pain involving his low back. He has had problems with his back with back pain for many years. He has noticed an increase in his pain from its previous level. He rates it as a 7-8. Overall, he feels that his days are more problematic because he is fighting the pain. His pain medications when he takes them are not near as effective as they had been in the past. He continues to take his chemotherapeutic medications. Notes that the pain is increasing with activity, walking, sitting, standing, climbing, lifting and bending. He feels that his medication regimen needs to be increased in order to help control his chronic pain as well as the cancer pain. States that he does fall somewhat frequently around his house. He does have a somewhat unsteady gait. ALLERGIES: No known drug allergies. CURRENT MEDICATIONS: Chewable aspirin, Avodart 0.5 mg, gabapentin 300 mg 1 p.o. t.i.d., hydrochlorothiazide 12.5 mg, oxycodone 10/325 one p.o. q 4-6 hours, Restoril 15 mg at bedtime, allopurinol, the patient is being treated for lymphocytic leukemia. Leukeran 2 tablets total of 4 tablets daily. PAIN CLINIC ASSESSMENT/PQRS: 1. The patient has some discomfort in his hips. He is not being treated for rheumatoid arthritis. 2. Height 5 feet 10 inches, weight 186 pounds, BMI is 26.7. 3. Vital signs: Blood pressure 127/70, heart rate 86, respiratory rate 20, room air saturation 95%, and temperature 97.6. 4. Pain intensity, 7-8/10. 5. Fall history: The patient does fall at home, but is not fractured or required hospitalization. 6. The patient feels that his legs give way. 7. Blood thinner. The patient is not on a blood thinning medication. 8. Hypertension. The patient is being treated for hypertension. 9. Opioids greater than 6 weeks. The [facility] [place] [address] PAIN MANAGEMENT CONSULTATION Name: PETE BANGURA Room: [facility]#: [id number] Admission: 03/06/19 Attend Phys: Amara Turk MD Discharge: Date of : 45 Report #: [id number] 10. Risk assessment tool, low for opioid use. 11. Functional assessment tool. 12. Recreational drug use: The patient denies. 13. Tobacco: The patient denies. 14. Alcohol. The patient denies use of other than an occasional glass of wine. PHYSICAL EXAMINATION: GENERAL: The patient is a well-developed, well-nourished white male. Appears his stated age. He is alert and oriented x 3. His affect is appropriate. Speech is fluent. HEENT: Normocephalic, atraumatic. Extraocular eye muscles intact. Sclerae nonicteric. Mucous membranes are moist. The patient is wearing glasses. NECK: Without adenopathy. HEART: Regular. LUNGS: Generally clear. MUSCULOSKELETAL: Upper extremity muscle strength judged to be 4/5 for the major muscle groups in the upper extremity. The patient is kyphotic. Stands generally leaning to the left. Complains of low back pain, hip pain, right and left-sided pain. IMPRESSION: 1. Symptomatic lumbar radiculopathy history. 2. Spinal stenosis of lumbar spine. 3. Treated for chronic treatment of the lymphocytic leukemia at [facility]. 4. Lumbosacral spondylosis with radiculopathy. 5. Kyphosis. 6. Scoliosis. 7. Bilateral shoulder pain. 8. Chronic intractable pain treated with opioids and complex medical regimen. 9. Cervical facet syndrome. 10. Muscular dystrophy. 11. Enlarged prostate. 12. Hypertension. RECOMMENDATIONS: We discussed treatment options with the patient. At this juncture, he feels that his pain is increased to the level he is not gaining comfort from his current medication regimen. States that his days are filled with chronic pain. Feels that with the chronic pain he is experiencing as well as his pain, this is making life much more difficult to endure. At this juncture, we will increase his medications and try 5 mg of methadone daily. Hopefully, this medication will add the amount of pain relief that he needs. It can be helpful with neuropathic pain as well. He will call us if he has any concerns in regards to this medication. Hopefully, things will continue to improve. He is aware that opioid medications can become less effective as time goes on. He is experiencing that now. He is taking the medications as [address] [place] [address] PAIN MANAGEMENT CONSULTATION Name: PETE BANGURA Room: [facility]#: [id number] Admission: 03/06/19 Attend Phys: Amara Turk MD Discharge: Date of : 45 Report #: [id number] prescribed. Hopefully, he will continue to glean benefit from this while he continues to try to recuperate from his lymphocytic leukemia. A script for these medications have been provided to the patient. By: [id number]. Flaco Turk MD /nt
== END ==
LOC: M.PC 09:00
DX: M48.061 Spinal stenosis, lumbar region without neurogenic claudication (principal); M47.27 Other spondylosis with radiculopathy, lumbosacral region; M41.86 Other forms of scoliosis, lumbar region; G89.4 Chronic pain syndrome; N40.0 Benign prostatic hyperplasia without lower urinary tract symptoms; I10 Essential (primary) hypertension; M25.511 Pain in right shoulder; M25.512 Pain in left shoulder

== ENCOUNTER → 2019-08-21 | Outpatient (CLI) | payer MEDICARE ==
[~2019-08-21] MED LIST changes: +ONDANSETRON HCL4 M2 PO; +VENCLEXTA100 MG PO
--- NOTE | 2019-08-22 11:31 | PAINCON ---
[address] [address] PAIN MANAGEMENT CONSULTATION Name: PETE BANGURA Room: [facility] Edel.#: [id number] Admission: 08/21/19 Attend Phys: Amara Turk MD Discharge: Date of : 45 Report #: [id number] THIS REPORT FOR: //name// cc: Amos Mcneill MD, David L. MD ~ THIS REPORT FOR: //name// CC: Amos Turk DATE OF SERVICE: 08/21/2019 CHIEF COMPLAINT: "Here for medication renewal. I am still having back pain." HISTORY: The patient is a 74-year-old gentleman who has been followed in the pain clinic because of chronic pain. As you recall, he has history of lumbosacral pain and radicular discomfort. He suffers from muscular dystrophy. Continues to note some weakening as a result of time going on. He has some more difficulty with his balance. He feels his medications have been working reasonably well. We have been hit by the COVID-19 pandemic since we saw him last. He has been staying at home. He would like to continue with his medications. He has completed his chemotherapy for chronic leukemia. He rates his pain as a 5-6/10. He notes that with activity, walking, sitting, standing, climbing stairs, lifting and bending, he notes more pain and discomfort. He has returned with the hope of having his medications renewed. ALLERGIES: No known drug allergies. CURRENT MEDICATIONS: 1. Avodart 0.5 mg. 2. Gabapentin 800 mg t.i.d., a total of 2700 mg per day. 3. Hydrochlorothiazide 12.5 mg. 4. Oxycodone 10 mg one p.o. q 4-6 hours. 5. Restoril at bedtime. 6. Allopurinol for lymphocytic leukemia. 7. Methadone 5 mg 1 p.o. daily. PAIN CLINIC ASSESSMENT AND PQRS: 1. The patient has pain and discomfort in his hips. He is not being treated for rheumatoid arthritis. 2. Height: 5 feet 10 inches, weight 187 pounds, BMI is 26.7. 3. Vital Signs: Blood pressure 116/85, heart rate 81, respiratory rate 16, room air saturation 97.3. 4. Pain intensity: 5-6/10. 5. Fall History: The patient has not fallen since we saw him last. 6. Blood Thinner: The patient is not on [place] [address] PAIN MANAGEMENT CONSULTATION Name: PETE BANGURA Room: [facility]#: [id number] Admission: 08/21/19 Attend Phys: Amara Turk MD Discharge: Date of : 45 Report #: [id number] 7. Hypertension: The patient is being treated for hypertension. 8. Opioids greater than 6 weeks: The patient received medication from the pain clinic. 9. Risk assessment tool: Low for opioid use. 10. Functional assessment tool: Reviewed. 11. Recreational drug use: The patient denies. 12. Tobacco: The patient denies. 13. Alcohol. The patient denies alcoholic beverages. PHYSICAL EXAMINATION: GENERAL: The patient is a well-developed, well-nourished white male. Appears his stated age. He is alert and oriented x 3. His affect is appropriate. Speech is fluent. HEENT: Normocephalic, atraumatic. Extraocular eye muscles intact. The patient is wearing glasses. The patient has a mask in place. HEART: Regular rate. LUNGS: Clear. GASTROINTESTINAL: Denies. ENDOCRINE No changes. EXTREMITIES: The patient is walking with a cane. He has an antalgic gait. He notes some muscle weakness. He uses hands to go from a sitting to a walking position. He complains of pain in the back, hips, and left and right side. IMPRESSION: 1. Symptomatic lumbar radicular history. 2. Spinal stenosis of lumbar spine. 3. Completed treatment of chronic lymphocytic leukemia at [facility]. 4. Lumbosacral spondylosis with radiculopathy. 5. Kyphosis. 6. Scoliosis. 7. Bilateral shoulder pain. 8. Chronic intractable pain using opioids to help control the pain. 9. Cervical facet syndrome. 10. Muscular dystrophy. 11. Enlarged prostate. 12. Hypertension. RECOMMENDATIONS: We discussed treatment options with the patient. At this juncture, we will continue with his medications. He feels that the medications of gabapentin is helpful. He does not have any problems with its use at this time. He feels that the methadone is helpful with his pain as well. He is using oxycodone 1 tablet p.o. q.6 hours p.r.n. He is not having any problems with his bowel or bladder function because of narcotic use. A script for his medications has been renewed. The patient is aware that opioid medications can become less effective as time goes on. [address] [address] PAIN MANAGEMENT CONSULTATION Name: PETE BANGURA Room: [facility] Valle#: [id number] Admission: 08/21/19 Attend Phys: Amara Turk MD Discharge: Date of : 45 Report #: [id number] We would like to thank you for letting us participate in his care. He will call us if he has any concerns. <ELECTRONICALLY SIGNED> By: Amara Turk MD 08/22/19 1131 [id number]. Flaco Turk MD /nt
== END ==
LOC: M.PC 04:59
PROVIDERS: ATTEND Anesthesiology Pain Medicine
DX: M47.27 Other spondylosis with radiculopathy, lumbosacral region (principal); M25.511 Pain in right shoulder; M25.512 Pain in left shoulder; I10 Essential (primary) hypertension; N40.0 Benign prostatic hyperplasia without lower urinary tract symptoms; G71.00 Muscular dystrophy, unspecified; M53.82 Other specified dorsopathies, cervical region; F11.20 Opioid dependence, uncomplicated; M48.061 Spinal stenosis, lumbar region without neurogenic claudication; Z87.39 Personal history of other diseases of the musculoskeletal system and connective tissue

== ENCOUNTER → 2019-11-13 | Outpatient (CLI) | payer MEDICARE ==
[~2019-11-13] MED LIST changes: +FLOMAX0.4 MG PO; +NEURONTIN800 MG PO
--- NOTE | 2019-11-15 09:35 | PAINCON ---
[address] [address] PAIN MANAGEMENT CONSULTATION Name: PETE BANGURA Room: [facility] EDA Hollingsworth.#: [id number] Admission: 11/13/19 Attend Phys: Amara Turk MD Discharge: Date of : 45 Report #: [id number] THIS REPORT FOR: //name// cc: Ev Robbins MD, Lin W. MD ~ THIS REPORT FOR: //name// CC: Amos Turk DATE OF SERVICE: 11/13/2019 CHIEF COMPLAINT: "Here for medications and the new system has been a wait for a long time." HISTORY: The patient is a 74-year-old gentleman, who has been followed in the Pain Clinic because of chronic pain. As you may recall, he has low back pain, bilateral hip pain, and leg pain. This has been ongoing for a number of years and he does suffer from muscular dystrophy. He has continued to note weakness as time has gone on. He has had some difficulty with his balance. He has been sheltering at home because of COVID-19. He has also undergone chemotherapy for chronic leukemia. He rates his pain today as a 7/10. He notes that the pain has increased in his legs. He has been awake since 4 o'clock this morning due to the pain. He has been using stool softeners. He has had no significant changes since we saw him last. He does follow up with his oncologist in the near future. He notes that walking, sitting, standing, bending, and lifting, all can increase his pain and discomfort. He feels that the gabapentin, oxycodone, and methadone are helpful. He feels about 50% benefit from their use. He has returned today for renewal of the medications. ALLERGIES: No known drug allergies. CURRENT MEDICATIONS: Avodart 0.5 mg; gabapentin 800 mg t.i.d., a total of 2700 mg daily; hydrochlorothiazide 12.5 mg; oxycodone 10/325 one p.o. q. 4-6 hours; Restoril at bedtime; allopurinol for lymphocytic leukemia; methadone 5 mg 1 p.o. daily. PAIN CLINIC ASSESSMENT AND PQRS: 1. The patient has some pain and discomfort in his hips. He is not being treated for rheumatoid arthritis. 2. Height 5 feet 10 inches, weight 194 pounds, BMI is 27. 3. Vital signs: Blood pressure 110/67, heart rate 88, respiratory rate 16-20, saturation 91%, temperature 97.8. 4. Pain intensity: 7/10. 5. Fall history: The patient has not fallen since we [place] [address] PAIN MANAGEMENT CONSULTATION Name: PETE BANGURA Room: [facility]#: [id number] Admission: 11/13/19 Attend Phys: Amara Turk MD Discharge: Date of : 45 Report #: [id number] walk with use of a cane. 6. Blood thinner: The patient is not on a blood thinning medication. 7. Hypertension: The patient is being treated for hypertension. 8. Opioids greater than 6 weeks: The patient receives medications from the Pain Clinic. 9. Risk assessment tool: Low for opioid use. 10. Functional assessment tool: Reviewed. 11. Recreational drug use: The patient denies. 12. Tobacco: The patient denies. 13. Alcohol: The patient denies use of alcoholic beverages. PHYSICAL EXAMINATION: GENERAL: The patient is a well-developed, well-nourished, white male. Appears his stated age. He is alert and oriented x 3. His affect is appropriate. The patient is wearing a facial covering. HEENT: Normocephalic, atraumatic. Extraocular eye muscles intact. The patient is wearing glasses. HEART: Regular rate. LUNGS: Generally clear. GASTROINTESTINAL: Denies any complaints. ENDOCRINE: No changes. MUSCULOSKELETAL: The patient walks with a cane. He has a very antalgic gait. He looks somewhat unstable with his ambulation. He goes from a sitting to a standing position using his hands. He complains of pain in the back, hips, and legs, left and right side involvement. IMPRESSION: 1. Symptomatic lumbar radicular history. 2. Spinal stenosis of the lumbar spine. 3. [facility] 4. Lumbosacral spondylosis with radiculopathy. 5. Kyphosis. 6. Scoliosis. 7. Bilateral shoulder pain. 8. Chronic intractable pain, using opioids to help control the pain. 9. Cervical facet syndrome. 10. Muscular dystrophy. 11. Enlarged prostate. 12. Hypertension. RECOMMENDATIONS: We discussed treatment options with the patient. At this juncture, we will continue with his medications. The patient is somewhat saddened that his visit to the hospital is much more cumbersome since the onset of COVID-19. He is unable to go through the easiest access to the pain clinic. This has been locked down to only hospital personnel. He had a prolonged period of checking into the hospital. He feels his medications are helpful and would [address] [place] [address] PAIN MANAGEMENT CONSULTATION Name: PETE BANGURA Room: [facility]#: [id number] Admission: 11/13/19 Attend Phys: Amara Turk MD Discharge: Date of : 45 Report #: [id number] like to have them continued. He is not having any problems with mentation. A script for his medications of methadone 5 mg 1 p.o. daily has been provided. He will also continue with oxycodone 10 mg 1 p.o. 4-5 tablets per day. He will also continue with gabapentin 1 tablet in the morning, 1 tablet midday, and 1-1/2 tablets at night. We would like to thank you for letting us participate in his care. We hope he continues to improve. <ELECTRONICALLY SIGNED> By: Amara Turk MD 11/15/19 0935 [id number]. Flaco Turk MD /nt
== END ==
LOC: M.PC 09:00
PROVIDERS: ATTEND Anesthesiology Pain Medicine
DX: M47.27 Other spondylosis with radiculopathy, lumbosacral region (principal); G89.29 Other chronic pain; M48.061 Spinal stenosis, lumbar region without neurogenic claudication; M41.80 Other forms of scoliosis, site unspecified; M25.511 Pain in right shoulder; M25.512 Pain in left shoulder; G71.00 Muscular dystrophy, unspecified; M47.892 Other spondylosis, cervical region; N40.1 Benign prostatic hyperplasia with lower urinary tract symptoms; I10 Essential (primary) hypertension; F11.20 Opioid dependence, uncomplicated; Z79.899 Other long term (current) drug therapy

== ENCOUNTER → 2020-02-05 | Outpatient (CLI) | payer MEDICARE | LOC: M.PC 08:51 | PROVIDERS: ATTEND Anesthesiology Pain Medicine | DX: G89.29 Other chronic pain (principal); M48.061 Spinal stenosis, lumbar region without neurogenic claudication; M47.27 Other spondylosis with radiculopathy, lumbosacral region; M41.9 Scoliosis, unspecified; M47.892 Other spondylosis, cervical region; G71.00 Muscular dystrophy, unspecified; N40.0 Benign prostatic hyperplasia without lower urinary tract symptoms; M25.561 Pain in right knee; M25.562 Pain in left knee; Z68.28 Body mass index [BMI] 28.0-28.9, adult; Z98.890 Other specified postprocedural states; Z79.891 Long term (current) use of opiate analgesic ==

== ENCOUNTER → 2020-04-29 | Outpatient (CLI) | payer MEDICARE | LOC: M.PC 08:52 | PROVIDERS: ATTEND Anesthesiology Pain Medicine | DX: M54.5 Low back pain (principal); M25.552 Pain in left hip ==

== ENCOUNTER → 2020-07-22 | Outpatient (CLI) | payer MEDICARE | LOC: M.PC 09:59 | PROVIDERS: ATTEND Anesthesiology Pain Medicine | DX: M47.26 Other spondylosis with radiculopathy, lumbar region (principal); M48.061 Spinal stenosis, lumbar region without neurogenic claudication; M40.209 Unspecified kyphosis, site unspecified; N40.0 Benign prostatic hyperplasia without lower urinary tract symptoms; G71.00 Muscular dystrophy, unspecified; M25.551 Pain in right hip; Z79.899 Other long term (current) drug therapy ==

== ENCOUNTER → 2020-10-14 | Outpatient (CLI) | payer MEDICARE | LOC: M.PC 10:00 | PROVIDERS: ATTEND Anesthesiology Pain Medicine | DX: M47.27 Other spondylosis with radiculopathy, lumbosacral region (principal); M48.061 Spinal stenosis, lumbar region without neurogenic claudication; M25.511 Pain in right shoulder; M25.512 Pain in left shoulder; G89.4 Chronic pain syndrome; N40.0 Benign prostatic hyperplasia without lower urinary tract symptoms ==

== ENCOUNTER → 2021-01-06 | Outpatient (CLI) | payer MEDICARE | LOC: M.PC 09:53 | PROVIDERS: ATTEND Anesthesiology Pain Medicine | DX: M48.061 Spinal stenosis, lumbar region without neurogenic claudication (principal); M54.50 Low back pain, unspecified; M25.552 Pain in left hip; C91.90 Lymphoid leukemia, unspecified not having achieved remission; M47.27 Other spondylosis with radiculopathy, lumbosacral region; M41.9 Scoliosis, unspecified; M25.512 Pain in left shoulder; M25.511 Pain in right shoulder; G71.00 Muscular dystrophy, unspecified; N40.0 Benign prostatic hyperplasia without lower urinary tract symptoms; Z79.899 Other long term (current) drug therapy ==

== ENCOUNTER → 2021-03-31 | Outpatient (CLI) | payer MEDICARE ==
[~2021-03-31] MED LIST changes: +[UNRECOGNIZED DRUG - REMARK]
== END ==
LOC: M.PC 07:33
PROVIDERS: ATTEND Anesthesiology Pain Medicine
DX: M47.27 Other spondylosis with radiculopathy, lumbosacral region (principal); M48.061 Spinal stenosis, lumbar region without neurogenic claudication; M40.209 Unspecified kyphosis, site unspecified; M25.552 Pain in left hip; M25.511 Pain in right shoulder; M25.512 Pain in left shoulder; N40.0 Benign prostatic hyperplasia without lower urinary tract symptoms; Z79.899 Other long term (current) drug therapy